=== PATIENT | female | born 1980 | race American Indian/Alaskan Native ===

== ENCOUNTER 2021-03-02 14:11 | Emergency (ER) | payer MEDICARE ==
[2021-03-02] MEDS ORDERED: LACTATED RINGERS 1,000 ML IV ONE (15:37)
[2021-03-02] MEDS ORDERED: METOCLOPRAMIDE 10 MG/2 ML INJ IV NR (15:37)
[2021-03-02 16:11] LABS: Hematocrit 41.2 % (30.3-42.9); Hemoglobin 13.2 gm/dl (10.1-14.3); Mean Corpuscular HGB Conc 32 % (30-34); Mean Corpuscular Volume 92 fl (79-97); Platelet Count 418 K/mm3 (140-440); Red Blood Count 4.46 M/mm3 (3.65-5.03); Red Cell Distribution Width 12.4 % (13.2-15.2)
[2021-03-02 16:20] LABS: Alanine Aminotransferase 13 units/L (7-56); Albumin 4.5 g/dL (3.9-5); Blood Urea Nitrogen 18 mg/dL (7-17); Hemolysis Index 5
[2021-03-02 16:21] LABS: BUN/Creatinine Ratio 26
[2021-03-02] MEDS ORDERED: DEXTROSE 5% IN WATER 1,000 ML IV SCH (17:00)
--- NOTE | 2021-03-02 17:13 | Emergency Department Report ---
ED N/V/D HPI - General Chief complaint: Nausea/Vomiting/Diarrhea Stated complaint: NEEDS CARE Time Seen by Provider: 03/02/21 15:30 Source: patient Mode of arrival: Ambulatory Limitations: No Limitations - History of Present Illness Initial comments: Patient presented with nausea and vomiting. She is 12 weeks . She states she just cannot keep anything down. This is been going on for weeks and progressively worsening. She was seen at a different hospital yesterday. She was discharged. She is here today because she cannot tolerate any kind of liquids by mouth. She is not able to eat anything either. Patient states that she has no dysuria or frequency. She has had no fevers or chills per there is no cough congestion. She denies abdominal pain. She denies hematemesis or coffee-ground emesis. There is no melanotic stool. - Related Data Previous Rx's Medication Instructions Recorded Last Taken Type Metoclopramide [Reglan] 10 mg PO ACHS #120 tablet 03/02/21 Unknown Rx Allergies Allergy/AdvReac Type Severity Reaction Status Date / Time No Known Allergies Allergy Unverified 03/02/21 16:05 ED Review of Systems ROS: Stated complaint: NEEDS CARE Other details as noted in HPI Comment: All other systems reviewed and negative Constitutional: denies: fever Eyes: denies: eye pain ENT: denies: throat pain Respiratory: denies: cough Cardiovascular: denies: chest pain Endocrine: denies: unexplained weight loss Gastrointestinal: as per HPI Genitourinary: denies: dysuria Musculoskeletal: denies: back pain Skin: denies: rash Neurological: denies: headache Hematological/Lymphatic: denies: easy bruising ED Past Medical Hx - Past Medical History Previous Medical History?: No - Family History Family history: no significant - Social History Smoking Status: Never Smoker Substance Use Type: None - Medications Home Medications: Home Medications Medication Instructions Recorded Confirmed Last Taken Type Metoclopramide [Reglan] 10 mg PO ACHS #120 tablet 03/02/21 Unknown Rx ED Physical Exam - General Limitations: No Limitations, Other (Pulse ox noted and normal) General appearance: alert, in no apparent distress - Head Head exam: Present: atraumatic, normocephalic - Eye Eye exam: Present: normal appearance, EOMI - ENT ENT exam: Present: mucous membranes dry, normal external ear exam - Neck Neck exam: Present: normal inspection. Absent: meningismus - Respiratory Respiratory exam: Present: normal lung sounds bilaterally. Absent: respiratory distress - Cardiovascular Cardiovascular Exam: Present: regular rate, normal rhythm - GI/Abdominal GI/Abdominal exam: Present: soft. Absent: distended, tenderness, guarding - Extremities Exam Extremities exam: Present: normal capillary refill - Back Exam Back exam: Absent: CVA tenderness (R), CVA tenderness (L) - Neurological Exam Neurological exam: Present: alert, oriented X3, CN II-XII intact. Absent: motor sensory deficit - Psychiatric Psychiatric exam: Present: normal affect, normal mood - Skin Skin exam: Present: warm, dry ED Course Vital Signs 03/02/21 03/02/21 03/02/21 15:29 16:59 17:00 Temperature 98.5 F Pulse Rate 67 Respiratory 16 Rate Blood Pressure 110/64 Blood Pressure 112/67 [Right] O2 Sat by Pulse 99 95 95 Oximetry 03/02/21 03/02/21 17:16 17:30 Temperature Pulse Rate Respiratory Rate Blood Pressure 110/64 108/60 Blood Pressure [Right] O2 Sat by Pulse 100 100 Oximetry - Reevaluation(s) Reevaluation #1: 03/02/21 17:12 Labs have been ordered. They have been reviewed. Further IV hydration has been ordered. Reevaluation #2: 03/02/21 19:00 Patient was feeling better. She was eating and drinking. She was discharged. ED Medical Decision Making - Lab Data Result diagrams: 03/02/21 15:44 03/02/21 15:44 - Medical Decision Making Patient presents with nausea and vomiting associated with . She is hyd rated here. Her bicarbonate was low at 15. This would be consistent with dehydration. She does not have any other metabolic derangement. She was treated symptomatically and given IV fluids. When she was able to tolerate liquids, she was discharged. We did provide metoclopramide in addition. C linically, there is no evidence of hepatitis or pancreatitis. She has no distention or tympany that would suggest bowel obstruction. Critical Care Time: No Critical care attestation.: If time is entered above; I have spent that time in minutes in the direct care of this critically ill patient, excluding procedure time. ED Disposition Clinical Impression: Hyperemesis gravidarum, Dehydration Disposition: HOME / SELF CARE / HOMELESS Is pt being admited?: No Condition: Stable Instructions: Morning Sickness, [id number], Dehydration, Adult, [id number] Additional Instructions: Drink plenty water. Have a bland diet. Return for problems. Use mustapha as well. Follow-up with your marketing recruiter for recheck. Prescriptions: Metoclopramide [Reglan] 10 mg PO ACHS #120 tablet Referrals: PARUL MENJIVAR MD [Primary Care Provider] - 3-5 Days
[2021-03-02 19:31] VITALS: BP 111/55
== END 2021-03-02 19:30 | disposition home or self-care (01) ==
LOC: ED 14:11
DX: O21.0 Mild hyperemesis gravidarum (principal); Z3A.12 12 weeks gestation of pregnancy; E86.0 Dehydration; Z79.899 Other long term (current) drug therapy
CPT/HCPCS: 36415; 80053; 83690; 85027; 96361; 96365; 99283; J2765; 96366